=== PATIENT | male | born 1955 | race Caucasian/White ===

== ENCOUNTER 2017-09-30 08:37 | Emergency (ER) | payer SELFPAY ==
--- NOTE | 2017-09-30 09:02 | EDM.PDOC ---
ED HPI GENERAL MEDICAL PROBLEM - General Chief Complaint: ENT Problem Stated Complaint: TOOTH PAIN RT SIDE Time Seen by Provider: 09/30/17 08:58 Source of Information: Reports: Patient History Limitations: Reports: No Limitations - History of Present Illness INITIAL COMMENTS - FREE TEXT/NARRATIVE: This gentleman comes in because of dental pain area he said a filling fell out on one of his right lower premolars and he's been putting some temporary filling material in it. He told the nurse that this is been going on for about a year but now it's hurting very bad. He said he's going to see a dentist tomorrow. He said he's allergic to penicillin but he can take amoxicillin. He said he doesn't know why that is but he's always been able to take amoxicillin without any problems. - Related Data Allergies Allergy/AdvReac Type Severity Reaction Status Date / Time Penicillins Allergy Rash Verified 09/30/17 08:43 Home Meds: Home Meds NK [No Known Home Meds] 09/30/17 [History] Past Medical History - Past Health History Medical/Surgical History: Denies Medical/Surgical History Social & Family History - Tobacco Use Smoking Status *Q: Current Every Day Smoker Years of Tobacco use: 40 Packs/Tins Daily: 0.7 ED ROS ENT - Review of Systems Review Of Systems: ROS reveals no pertinent complaints other than HPI. ED EXAM, ENT - Physical Exam Exam: See Below Exam Limited By: No Limitations General Appearance: Alert, WD/WN, Mild Distress Mouth/Throat: Other (He does have several carious teeth the one in question is a right lower premolar and it has very large caries in it and there's a piece of temporary filling material stuff down in to the crater. No obvious abscess.) Course - Vital Signs Last Recorded V/S: Last Vital Signs Temp 36.9 C 09/30/17 08:47 Pulse 84 09/30/17 08:47 Resp 14 09/30/17 08:47 BP 187/100 H 09/30/17 08:47 Pulse Ox 98 09/30/17 08:47 Departure - Departure Time of Disposition: 09:01 Disposition: Home, Self-Care 01 Condition: Fair Clinical Impression: Dental caries - Discharge Information Referrals: PCP,None [Primary Care Provider] - Additional Instructions: Take amoxicillin 500 mg 3 times daily for 1 week. For pain take Percocet 5/325 one or 2 every 4 hours as needed, #15. This medication can cause sedation and impair driving or operating machinery. See the dentist tomorrow as planned
== END 2017-09-30 09:17 | disposition home or self-care (01) ==
LOC: JP.ED 08:37
DX: K02.9 Dental caries, unspecified (principal); F17.210 Nicotine dependence, cigarettes, uncomplicated; Z88.0 Allergy status to penicillin
CPT/HCPCS: 99282; 99283

== ENCOUNTER 2022-09-27 01:11 | Observation (INO) | payer MEDICARE, OTHER ==
[2022-09-27] MEDS ORDERED: Ondansetron 4 MG/2 ML SDV IVPUSH ONE (01:22)
[2022-09-27] MEDS ORDERED: Sodium Chloride 0.9% 100 ML IV STA ×2 (01:30→04:50)
[2022-09-27] MEDS ORDERED: Sodium Chloride 0.9% 1,000 ML IV SCH ×2 (01:30→08:05)
[2022-09-27 01:41] LABS: TROPONIN I HIGH SENSITIVITY 17.1 pg/mL (<=60.3)
[2022-09-27] MEDS ORDERED: Cefepime 2 GM Vial ONE (03:14)
[2022-09-27] MEDS ORDERED: Sodium Chloride 0.9% 100 ML ONE (03:15)
[2022-09-27] MEDS ORDERED: Cefepime 2 GM in Sodium Chloride 0.9% 100 ML IV ONE (03:15)
[2022-09-27 04:38] LABS: ESTIMATED GFR 44 mL/min (>60)
[2022-09-27] MEDS ORDERED: Iopamidol 755 Mg/ML 100 ML Bottle IV STA (04:50)
[2022-09-27] MEDS: Iopamidol 755 Mg/ML 100 ML Bottle IV STA ×3 (05:00→07:25)
[2022-09-27 05:51] LABS: CORONAVIRUS COVID-19 NAA NEGATIVE (NEGATIVE)
[2022-09-27] MEDS ORDERED: Ondansetron 4 MG/2 ML SDV IVPUSH PRN (05:57)
[2022-09-27] MEDS ORDERED: oxyCODONE 5 MG Tab PO PRN (08:05)
[2022-09-27] MEDS ORDERED: Docusate Sodium 100 MG Cap PO PRN (08:05)
[2022-09-27] MEDS ORDERED: Albuterol 0.083% 2.5 MG/3 ML Neb Soln NEB PRN (08:05)
[2022-09-27] MEDS ORDERED: LORazepam 2 MG/ML SDV IV PRN (08:05)
[2022-09-27] MEDS ORDERED: Morphine 2 MG/ML SYRINGE IVPUSH PRN (08:05)
[2022-09-27] MEDS ORDERED: Acetaminophen 325 MG Tab PO PRN (08:05)
[2022-09-27] MEDS ORDERED: Bisacodyl 5 MG Tab PO PRN (08:05)
[2022-09-27] MEDS ORDERED: Rosuvastatin 10 MG Tab PO SCH (09:00)
[2022-09-27] MEDS ORDERED: Lisinopril 20 MG Tab*POM PO SCH (09:00)
[2022-09-27] MEDS ORDERED: Aspirin 81 MG Tab.Chew PO SCH (09:00)
[2022-09-27] MEDS ORDERED: ROSUVASTATIN 20 MG PO SCH (21:00)
== END 2022-09-27 15:59 | disposition home or self-care (01) ==
LOC: JP.ED 01:11 → JP.MS 07:02
PROVIDERS: ADMIT Hospitalist; ATTEND Hospitalist
DX: R55 Syncope and collapse (principal); I95.89 Other hypotension; N17.9 Acute kidney failure, unspecified; E86.0 Dehydration; E86.1 Hypovolemia; I10 Essential (primary) hypertension; E78.00 Pure hypercholesterolemia, unspecified; Z88.0 Allergy status to penicillin; Z79.82 Long term (current) use of aspirin; Z79.899 Other long term (current) drug therapy; F17.210 Nicotine dependence, cigarettes, uncomplicated; Z20.822 Contact with and (suspected) exposure to COVID-19; Z98.890 Other specified postprocedural states
CPT/HCPCS: 0241U; 36415; 70450; 71275; 74175; 80053; 81001; 83605; 84145; 84484; 85025; 85610; 85730; 86140; 87040; 87635; 93005; 96361; 96365; 96375; 96376; 99285; A9270; G0378; J0692; J2405; J3490; J7030; Q9967; 93010; 99284; U0002

== ENCOUNTER 2024-07-26 10:02 | Emergency (ER) | payer OTHER ==
[2024-07-26] MEDS: Bacitracin Oint 1 GM U/D Packet TOP ONE (12:02)
== END 2024-07-26 12:02 | disposition home or self-care (01) ==
LOC: JP.ED 10:02
DX: S61.412A Laceration without foreign body of left hand, initial encounter (principal); I10 Essential (primary) hypertension; E78.00 Pure hypercholesterolemia, unspecified; Z86.16 Personal history of COVID-19; Z88.0 Allergy status to penicillin; Z79.82 Long term (current) use of aspirin; Z79.899 Other long term (current) drug therapy; W23.1XXA Caught, crushed, jammed, or pinched between stationary objects, initial encounter
CPT/HCPCS: 73130-26-LT; 73130-LT; 99283